=== PATIENT | male | born 1960 | race Caucasian/White ===

== ENCOUNTER → 2016-08-03 | Outpatient (CLI) | payer BC ==
[2016-08-03 17:01] LABS: Anisocytosis Slight; CH 30.2; CHCM 31.9; HCT 48.2 % (39.0-53.0); HDW 2.59; MCH 29.5 pg (25.0-35.0); MCHC 31.1 g/dL (31.0-37.0); MCV 94.9 fL (80.0-100.0); RBC 5.08 m/uL (4.30-5.90); RDW 16.6 % (11.5-15.5); WBC 8.4 k/uL (3.8-10.6)
[2016-08-03 17:11] LABS: Anion Gap 9 mmol/L; Blood Urea Nitrogen 14 mg/dL (9-20); Carbon Dioxide 27 mmol/L (22-30); Chloride 105 mmol/L (98-107); Non-African American GFR(MDRD) >60 (>60 ml/min/1.73 sqM); Potassium 4.7 mmol/L (3.5-5.1); Sodium 141 mmol/L (137-145)
== END | disposition home or self-care (01) ==
LOC: LABWHC1 16:45
PROVIDERS: ATTEND Internal Medicine Cardiovascular Disease
DX: Z01.812 Encounter for preprocedural laboratory examination (principal); I25.10 Atherosclerotic heart disease of native coronary artery without angina pectoris
CPT/HCPCS: 80051; 82565; 84520; 85027

== ENCOUNTER 2016-08-05 09:05 | Day surgery (SDC) | payer BC ==
[2016-08-04 09:35] VITALS: BMI 30.2
[~2016-08-05 09:05] MED LIST: ALPRAZolam 0.25 MG TAB PO PRN; ALPRAZolam 0.5 MG TAB PO PRN; ASPIRIN 325 MG TAB PO STA; ATORVASTATIN 80 MG TAB PO STA; NITROGLYCERIN SL TABS 0.4 MG TAB SUBLINGUAL PRN; SODIUM CHLORIDE 0.9% 1,000 ML in EMPTY BAG 1 BAG IV ONE
[2016-08-05] MEDS ORDERED: LIDOCAINE 2% INJ 20 MG/ML (20 ML MDV) ONE ×2 (10:26→12:26)
[2016-08-05] MEDS ORDERED: MIDAZOLAM 2 MG/2 ML VIAL ONE (10:26)
[2016-08-05] MEDS ORDERED: diphenhydrAMINE 50 MG/ML 1 ML VIAL ONE (10:26)
[2016-08-05] MEDS ORDERED: MIDAZOLAM 2 MG/2 ML VIAL IVP ONE (10:39)
[2016-08-05] MEDS ORDERED: diphenhydrAMINE 50 MG/ML 1 ML VIAL IVP ONE (10:39)
[2016-08-05] MEDS ORDERED: fentaNYL (PF) 50 MCG/ML 2 ML AMP ONE (10:48)
[2016-08-05] MEDS ORDERED: fentaNYL (PF) 50 MCG/ML 2 ML AMP IV ONE (10:49)
[2016-08-05] MEDS ORDERED: LIDOCAINE 2% INJ 20 MG/ML SQ ONE (10:52)
[2016-08-05] MEDS ORDERED: IOHEXOL 350 MG/ML 125ML BOTTLE INJ ONE ×2 (11:27→12:27)
[2016-08-05] MEDS ORDERED: BIVALIRUDIN BOLUS 250 MG/50 ML IV ONE (11:39)
[2016-08-05] MEDS ORDERED: BIVALIRUDIN 250 MG in SODIUM CHLORIDE 0.9% 50 ML IV ONE (11:39)
--- NOTE | 2016-08-05 11:47 | CC ---
DATE OF SERVICE: INDICATION: Unstable angina. PROCEDURE NOTE: After obtaining informed consent, left heart catheterization and coronary angiogram were performed via the right femoral artery using standard Aliya catheters. Patient tolerated the procedure well without any obvious immediate complications. FINDINGS: 1. HEMODYNAMICS: Left ventricular end-diastolic pressure is 12 to 14 mm. There is no significant gradient across the aortic valve. 2. LEFT VENTRICULOGRAM: Left ventriculogram is not performed. 3. ANGIOGRAPHIC DATA: LEFT MAIN CORONARY ARTERY: Left main coronary artery is a normal size vessel and is free of stenosis. It divides into left anterior descending coronary artery and circumflex coronary artery. Circumflex coronary artery shows a 95% focal stenosis as it bifurcates into an AV groove circumflex and PLV. LAD was previously stented in the proximal part. There is a 50% to 60% in-stent restenosis noted. Right coronary artery is a large dominant vessel that shows a 90% focal stenosis in its proximal portion and mid to distal portion. This was the area that was previously stented. CONCLUSION: Three-vessel coronary artery disease with in-stent restenosis of the LAD, 90% focal stenosis involving circumflex and focal areas of stenosis in the right coronary artery. I am going to review the angiographic data with Dr. Abimael Coleman who performed his angioplasties in the past and see if we should make further efforts at catheter-based revascularization of multivessel coronary artery disease or refer him for bypass surgery. Total sedation time is 50 minutes. The patient has never taken statins secondary to muscle aches.
[2016-08-05] MEDS: NITROGLYCERIN 1000MCG/10ML SYRINGE INTRACORON ONE ×2 (11:52→12:21)
[2016-08-05] MEDS ORDERED: PRASUGREL 10 MG TAB ONE (12:14)
[2016-08-05] MEDS ORDERED: PRASUGREL 10 MG TAB PO ONE (12:15)
[2016-08-05] MEDS ORDERED: MAG HYDROX/AL HYDROX/SIMETH 30 ML CUP PO PRN (12:27)
[2016-08-05] MEDS ORDERED: ATROPINE SULFATE 0.1 MG/ML 10ML SYRINGE IV PRN (12:27)
[2016-08-05] MEDS ORDERED: RX INFO: IV CONTRAST WAS GIVEN 1 EACH MISC MISCELLANE PRN (12:27)
[2016-08-05] MEDS: SODIUM CHLORIDE 0.9% 1,000 ML IV SCH (13:00)
[2016-08-05] MEDS: METOPROLOL TARTRATE 12.5 MG TAB PO SCH (20:05)
[2016-08-05] MEDS: BISACODYL 5 MG TABLET.DR PO SCH (20:05)
[2016-08-05] MEDS ORDERED: ATORVASTATIN 10 MG TAB PO SCH (21:00)
[2016-08-05] MEDS ORDERED: ZOLPIDEM 5 MG TAB PO PRN (21:00)
[2016-08-06] MEDS: SODIUM CHLORIDE 0.9% 1,000 ML IV SCH (01:03)
[2016-08-06 04:44] VITALS: RESP 16
[2016-08-06 07:01] LABS: Anisocytosis Slight; Basophils % (A) 1 %; CH 30.4; CHCM 33.3; Eosinophils # (A) 0.3 k/uL (0-0.7); Eosinophils % (A) 4 %; HCT 43.4 % (39.0-53.0); HDW 2.73; HGB 14.5 gm/dL (13.0-17.5); Luc # (Auto) 0.25; Luc % (Auto) 3; Lymphocytes # (A) 1.9 k/uL (1.0-4.8); Lymphocytes % (A) 25 %; MCH 30.7 pg (25.0-35.0); MCHC 33.5 g/dL (31.0-37.0); MCV 91.7 fL (80.0-100.0); Mean Platelet Volume 7.1; Monocytes # (A) 0.6 k/uL (0-1.0); Monocytes % (A) 8 %; Neutrophils # (A) 4.6 k/uL (1.3-7.7); Neutrophils % (A) 60 %; RBC 4.73 m/uL (4.30-5.90); RDW 16.5 % (11.5-15.5); WBC 7.7 k/uL (3.8-10.6)
[2016-08-06 07:20] LABS: Anion Gap 6 mmol/L; Blood Urea Nitrogen 12 mg/dL (9-20); Calcium 8.8 mg/dL (8.4-10.2); Carbon Dioxide 23 mmol/L (22-30); Chloride 109 mmol/L (98-107); Glucose 92 mg/dL (74-99); Non-African American GFR(MDRD) >60 (>60 ml/min/1.73 sqM); Potassium 4.4 mmol/L (3.5-5.1); Sodium 138 mmol/L (137-145)
[2016-08-06 08:25] VITALS: BP 123/73; PULSE 77; TEMP 97.3
[2016-08-06] MEDS: METOPROLOL TARTRATE 12.5 MG TAB PO SCH (08:29)
[2016-08-06] MEDS: BISACODYL 5 MG TABLET.DR PO SCH (08:29)
--- NOTE | 2016-08-06 08:59 | DS ---
DATE OF ADMISSION: 08/05/2016 DATE OF DISCHARGE: 08/06/2016 FINAL DIAGNOSES: Unstable angina. PROCEDURES PERFORMED: 1. Left heart catheterization. 2. Angioplasty with stent placement of right coronary artery and circumflex coronary artery. HOSPITAL COURSE: This is a 55-year-old gentleman with known case of coronary artery disease, status post multivessel angioplasty over the last 15 years, came my office with symptoms of unstable angina, was brought in electively for heart catheterization. His cardiac catheterization revealed three-vessel coronary artery disease and patient was advised bypass surgery. He opted not to go through bypass surgery, but wished to have catheter-based revascularization. He underwent angioplasty of right coronary artery and circumflex coronary artery, has extensive restenosis of the LAD stent, which will be addressed down the road. This morning, he is doing well and is free of symptoms. Currently on aspirin, Tenormin, Effient. Patient was on statins in the past, which he stopped secondary to muscle aches. I am going to try him on pravastatin 40 mg daily. On exam, comfortable at rest. Vital signs are stable. There is no jugular venous distention. Chest exam reveals good air entry bilaterally. Heart exam reveals first and second heart sounds. No gallop. Exam of the extremities did not reveal edema. Peripheral pulses are felt. Right groin exam shows mild tenderness with mild ecchymosis. There is no posterior masses, no bruit. No hematoma. Foot pulses are intact. EKG does not reveal ischemic changes. Labs show a hemoglobin of 14.5, platelet count is 194. Potassium is 4.4. Creatinine is 0.75. DISCHARGE MEDICATIONS: 1. Patient will go home on Tenormin 12.5 q. daily. 2. Aspirin 81 mg daily. 3. Prasugrel 10 mg daily. 4. Pravachol 40 mg daily. 5. Sublingual nitroglycerin on a p.r.n. basis. FOLLOWUP: He will be followed up in my office in a week's time. The plan at this stage is to repeat a cardiac catheterization on him in 3 to 4 months' time and if his right coronary artery and circumflex coronary artery stents are patent, attempt angioplasty of LAD. If not, send him to bypass surgery.
[2016-08-06] MEDS ORDERED: CYANOCOBALAMIN-FA-PYRIDOXINE 1 EACH TAB PO SCH (09:00)
[2016-08-06] MEDS ORDERED: LACTOBACILLUS ACIDOPH & BULGAR 1 EACH PACKET PO SCH (09:00)
[2016-08-06] MEDS ORDERED: PRASUGREL 10 MG TAB PO SCH (09:00)
[2016-08-06] MEDS ORDERED: ASPIRIN 81 MG CHEW PO SCH (09:00)
[2016-08-06] MEDS ORDERED: CYANOCOBALAMIN 500 MCG TAB PO SCH (09:00)
[2016-08-06] MEDS ORDERED: [UNRECOGNIZED DRUG - OTHER] PO SCH (09:00)
--- NOTE | 2016-08-06 09:35 | PTCA ---
DATE OF SERVICE: 08/05/2016 PROCEDURE: 1. Percutaneous transluminal coronary angioplasty and stenting of mid-circumflex coronary artery, which was an in-stent restenotic lesion. 2. Percutaneous transluminal coronary angioplasty and stenting of proximal and mid-right coronary artery, which was an in-stent restenotic lesion. Performed by Dr. Abimael Coleman. CLINICAL INFORMATION: Mr. Scooby Valdes is a 55-year-old gentleman with history of hypertension, hyperlipidemia, CAD with multivessel PCI. Over the years, he had stenting of a major diagonal branch performed, proximal and mid RCA performed and also circumflex stenting performed. He came in with symptoms suggestive of angina and Dr. Richey performed cardiac catheterization which revealed that there was a restenosis within the major diagonal branch. LAD was free of significant disease. The RCA in the mid and proximal portion had a restenotic lesion of 80% and also circumflex had 80% to 90% mid lesion within the previously placed stent. I initially recommended aortocoronary bypass surgery, but patient was absolutely adamant and refused and did not wish to have open heart surgery and therefore I went ahead and performed intervention. PROCEDURE NOTE: The existing [place] introducer in the right femoral artery was used to perform the procedure. I used a standard JL4 guide catheter of 6 [place] caliber to cannulate coronary artery. I used a Whisper wire and this wire was used to cross the lesion and circumflex kept distally. A 2.5 caliber, 12 mm long NC Trek balloon was used to predilate the lesion. A 2.75 caliber, 12 mm long, Promus drug-eluting stent was deployed at 13 atmospheres. Excellent angiographic result was achieved without complication. I then turned my attention to the right coronary artery. Initially, I tried ARPT 3.5 catheter but I could not get a good guide support. I switched over to a KRH catheter. With this I was able to get a good guide support. The same Whisper wire was advanced and positioned distally. A 2.5 caliber, NC Trek balloon of 12 mm caliber was used to predilate the lesion. I then deployed a 3.0 caliber, 16 mm long chromosome drug-eluting stent in the mid portion with excellent angiographic result. Proximal to it, another 12 mm long Promus 3.0 stent was deployed at 13 atmospheres. Excellent angiographic result was achieved without complication. The sheath was taken out and Angio-Seal device used to secure hemostasis and patient was sent to the room in a stable condition. Patient received moderate conscious sedation for 45 minutes to 1 hour with intravenous Versed and Benadryl. Patient's oxygen saturation was monitored closely. He received Angiomax bolus and infusion and also received 10 mg of Effient. Patient was already on Effient to begin with. He was sent to the room in stable condition. Results were discussed with the patient and I will speak to the family later on. SUSAN
== END 2016-08-06 09:07 | disposition home or self-care (01) ==
LOC: CATHCVL 09:05 → 6SEL 12:28 → CATHCVL 08-06 09:07
PROVIDERS: ATTEND Internal Medicine Cardiovascular Disease
DX: I25.110 Atherosclerotic heart disease of native coronary artery with unstable angina pectoris (principal); T82.855A Stenosis of coronary artery stent, initial encounter; E78.5 Hyperlipidemia, unspecified; Y71.8 Miscellaneous cardiovascular devices associated with adverse incidents, not elsewhere classified; Z79.899 Other long term (current) drug therapy; Z79.82 Long term (current) use of aspirin; Z82.49 Family history of ischemic heart disease and other diseases of the circulatory system
CPT/HCPCS: 99152; 99153 ×2; 93458; 80048; 85025; C9600 ×2; C1760; C1769 ×2; C1887 ×3; C1725; C1894; C1874; J2001; J2250; J1200; J3010; J0583; Q9967